=== PATIENT | male | born 1955 | race Caucasian/White ===

== ENCOUNTER 2016-11-20 10:29 | Emergency (ER) | payer OTHER ==
[~2016-11-20] VITALS: Ht 167.6 cm; Wt 112.0 kg
[~2016-11-20 10:29] MED LIST: ADVAI500I PO; ALLO300T2 PO; ASPI81TA82 PO; CART240C4 PO; CEPH500C3 PO; FISH120014 PO; HCTZ25 PO; LISI-360 PO; MOTR200T PO; MULTTAB23 PO
[2016-11-20 10:33] VITALS: BP 152/86; PULSE 78; RESP 16; TEMP 98.2; O2SAT 95
[2016-11-20] MEDS ORDERED: ASPI81CH CHEW (10:42)
[2016-11-20] MEDS ORDERED: FISHCAP4 PO (10:42)
[2016-11-20] MEDS ORDERED: ADVA500A INH (10:42)
[2016-11-20] MEDS ORDERED: ALLO300T2 PO (10:42)
[2016-11-20] MEDS ORDERED: LISI10TA3 PO (10:42)
[2016-11-20] MEDS ORDERED: MULTTAB67 PO (10:42)
[2016-11-20] MEDS ORDERED: HYDR25TA5 PO (10:42)
[2016-11-20] MEDS ORDERED: CART120C PO (10:42)
[2016-11-20] MEDS ORDERED: ORPH100T99 PO (10:50)
[2016-11-20] MEDS ORDERED: IBUP400T20 PO (10:50)
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
== END 2016-11-20 11:19 | disposition home or self-care (01) ==
LOC: PHEFT 10:29
DX: S16.1XXA Strain of muscle, fascia and tendon at neck level, initial encounter (principal); M54.5 Low back pain; I10 Essential (primary) hypertension; Z87.09 Personal history of other diseases of the respiratory system; Z87.39 Personal history of other diseases of the musculoskeletal system and connective tissue; V89.2XXA Person injured in unspecified motor-vehicle accident, traffic, initial encounter
CPT/HCPCS: 99283